=== PATIENT | female | born 1990 | race Caucasian/White ===

== ENCOUNTER 2017-03-04 11:23 | Emergency (ER) | payer OTHER ==
[~2017-03-04] VITALS: Ht 154.9 cm; Wt 70.5 kg
[~2017-03-04 11:23] MED LIST: IBUPROFEN800 MG PO; Motrin PO; PRENATAL TABLE1 EAC3 PO
[2017-03-04 12:52] LABS: HEMOGLOBIN 10.4 G/DL (11.9-15.5); MCH 29.6 PG (29.0-34.0); MCHC 33.5 G/DL (30.0-36.0); MCV 88.3 FL (83-99); PLATELET COUNT 120 K/uL (156-360); RBC DIS.WIDTH-SD 41.7 % (39-53); RED BLOOD COUNT 3.51 M/uL (3.80-5.20); WHITE BLOOD COUNT 9.1 K/uL (4.1-10.2)
[2017-03-04 13:01] LABS: ALBUMIN 3.2 g/dL (3.2-4.8)
[2017-03-04 13:02] LABS: CHLORIDE 107 mEq/L (99-109); POTASSIUM 3.7 mEq/L (3.7-5.4); SODIUM 137 mEq/L (136-147)
[2017-03-04 13:04] LABS: GLUCOSE 79 mg/dL (70-99); TOTAL PROTEIN 6.4 g/dL (6.4-8.3)
[2017-03-04 13:06] LABS: TOTAL BILIRUBIN 0.3 mg/dL (0.0-1.0)
[2017-03-04 13:07] LABS: ALKALINE PHOSPHATASE 56 IU/L (3-129)
[2017-03-04 13:08] LABS: CREATININE 0.6 mg/dL (0.6-1.3); GFR ESTIMATE (CALCULATED) > 59 mL/min/
[2017-03-04 13:09] LABS: AST (GOT) 14 IU/L (2-34); UREA NITROGEN (BUN) 8 mg/dL (9-23)
[2017-03-04 13:11] LABS: ALT (GPT) 10 IU/L (3-49)
[2017-03-04 13:17] LABS: QUANTITATIVE HCG 11761.8 MIU/ML
[2017-03-04 14:05] LABS: APPEARANCE CLOUDY ((CLEAR)); BILIRUBIN NEGATIVE; BLOOD NEGATIVE; GLUCOSE (STRIP) NEGATIVE; KETONES 20; LEUKOCYTES MODERATE; NITRITE NEGATIVE; PROTEIN (STRIP) 30; SPECIFIC GRAVITY 1.028 (1.000-1.030)
[2017-03-04 14:11] LABS: COLOR YELLOW ((YELLOW))
[2017-03-04 14:19] LABS: BACTERIA RARE /HPF; CALCIUM OXALATE CRYSTALS 4+ /HPF; EPITHELIAL CELLS 1+ /HPF; HYALINE CASTS 0-5 /LPF; MUCUS 4+ /LPF; RED BLOOD CELLS 0-5 /HPF (0-5); UCUL ADDED? YES
[2017-03-04] MEDS ORDERED: ZOFRAN4 MG PO (16:52)
[2017-03-04] MEDS ORDERED: KEFLEX500 MG PO (16:54)
[2017-03-04 16:56] VITALS: BP 113/55
== END 2017-03-04 16:57 | disposition home or self-care (01) ==
LOC: EME 11:23
DX: O21.2 Late vomiting of pregnancy (principal); Z3A.28 28 weeks gestation of pregnancy; O99.513 Diseases of the respiratory system complicating pregnancy, third trimester; J45.909 Unspecified asthma, uncomplicated
CPT/HCPCS: 80053; 81003; 84702; 85027; 87086; 99281; 99285; J7030

== ENCOUNTER 2017-03-22 22:23 | Emergency (ER) | payer OTHER ==
[~2017-03-22] VITALS: Ht 154.9 cm; Wt 72.1 kg
[~2017-03-22 22:23] MED LIST changes: +KEFLEX500 MG PO; +ZOFRAN4 MG PO
[2017-03-22] MEDS ORDERED: AMOXICILLIN875 MG PO (22:57)
[2017-03-22 23:23] LABS: APPEARANCE CLEAR ((CLEAR)); BILIRUBIN NEGATIVE; BLOOD NEGATIVE; COLOR STRAW ((YELLOW)); GLUCOSE (STRIP) NEGATIVE; KETONES NEGATIVE; LEUKOCYTES NEGATIVE; NITRITE NEGATIVE; PROTEIN (STRIP) NEGATIVE; SPECIFIC GRAVITY 1.004 (1.000-1.030); UCUL ADDED? NO; UROBILINOGEN 0.2 MG/DL (0.2-1.0)
[2017-03-23 00:39] VITALS: BP 120/76
== END 2017-03-23 01:14 | disposition home or self-care (01) ==
LOC: EME 22:23
PROVIDERS: Emergency Medicine Emergency Medical Services
DX: O99.513 Diseases of the respiratory system complicating pregnancy, third trimester (principal); J06.9 Acute upper respiratory infection, unspecified; J45.909 Unspecified asthma, uncomplicated; Z3A.30 30 weeks gestation of pregnancy; Z87.01 Personal history of pneumonia (recurrent)
CPT/HCPCS: 81003; 87502; 99281; 99284

== ENCOUNTER 2017-05-25 08:08 | Inpatient (IN) | payer OTHER ==
[2017-05-25] VITALS (11 sets, daily range): BP systolic 111–142; BP diastolic 53–92
[~2017-05-25] VITALS: Ht 154.9 cm; Wt 74.3 kg
[~2017-05-25 08:08] MED LIST changes: +AMOXICILLIN875 MG PO
[2017-05-25 09:37] LABS: BASOPHIL (%) 0.5 % (0-1); EOSINOPHIL (%) 1.7 % (0-5); EOSINOPHIL COUNT 0.1 K/uL (0-0.3); HEMATOCRIT 34.8 % (36.0-46.0); HEMOGLOBIN 11.2 G/DL (11.9-15.5); IMMATURE GRANULOCYTE (%) 0.6 % (0.0-0.7); LYMPHOCYTE (%) 19.3 % (15-42); LYMPHOCYTE COUNT 1.6 K/uL (1.0-2.8); MCH 27.6 PG (29.0-34.0); MCHC 32.2 G/DL (30.0-36.0); MCV 85.7 FL (83-99); MONOCYTE (%) 7.1 % (3-12); MONOCYTE COUNT 0.6 K/uL (0-0.8); NEUTROPHIL (%) 70.8 % (45-76); NEUTROPHIL COUNT 5.7 K/uL (1.8-6.4); PLATELET COUNT 165 K/uL (156-360); RBC DIS.WIDTH-CV 15.2 % (11.8-14.6); RBC DIS.WIDTH-SD 47.3 % (39-53); RED BLOOD COUNT 4.06 M/uL (3.80-5.20)
[2017-05-26 06:20] LABS: BASOPHIL (%) 0.5 % (0-1); BASOPHIL COUNT 0.1 K/uL (0-0.1); EOSINOPHIL (%) 1.8 % (0-5); EOSINOPHIL COUNT 0.2 K/uL (0-0.3); IMMATURE GRANULOCYTE (%) 0.5 % (0.0-0.7); LYMPHOCYTE (%) 19.5 % (15-42); LYMPHOCYTE COUNT 2.1 K/uL (1.0-2.8); MCH 27.4 PG (29.0-34.0); MCHC 32.3 G/DL (30.0-36.0); MCV 84.9 FL (83-99); MONOCYTE (%) 7.5 % (3-12); MONOCYTE COUNT 0.8 K/uL (0-0.8); NEUTROPHIL (%) 70.2 % (45-76); NEUTROPHIL COUNT 7.7 K/uL (1.8-6.4); PLATELET COUNT 138 K/uL (156-360); RBC DIS.WIDTH-CV 15.2 % (11.8-14.6); RBC DIS.WIDTH-SD 46.3 % (39-53); RED BLOOD COUNT 3.65 M/uL (3.80-5.20)
[2017-05-26] MEDS ORDERED: IBUPROFEN800 MG PO (11:45)
[2017-05-26] MEDS ORDERED: DOCUSATE SODIU100 MG PO (11:46)
[2017-05-26] MEDS ORDERED: FERROCITE324 MG PO (11:47)
== END 2017-05-26 15:14 | disposition home or self-care (01) | DRG 775 ==
LOC: LDRP-OP → 2WEST 08:09 → LDRP-OP 19:35 → 2WEST 05-26 15:14 → LDRP-OP 06-28 12:58
PROVIDERS: Advanced Practice Midwife
DX: O99.02 Anemia complicating childbirth (principal); D62 Acute posthemorrhagic anemia; D69.6 Thrombocytopenia, unspecified; Z3A.39 39 weeks gestation of pregnancy; Z37.0 Single live birth
CPT/HCPCS: 85025; J2590